=== PATIENT | female | born 1960 | race Caucasian/White ===

== ENCOUNTER 2021-10-11 03:37 | Inpatient (IN) | payer OTHER ==
[2021-10-11 05:27] VITALS: BMI 29.7
[2021-10-11] MEDS ORDERED: Ondansetron PF 4 MG/2 ML Vial IVP PRN (06:16)
[2021-10-11] MEDS ORDERED: Nitroglycerin 0.4 MG TAB (25 Tab Bottle) SL PRN (06:16)
[2021-10-11 07:03] LABS: Cardiac Risk 5.1 (Less than 4.5)
[2021-10-11 07:13] LABS: Troponin I 14.786 ng/mL (< 0.028)
[2021-10-11 07:27] LABS: Hemoglobin A1c 5.7 % (4.0-6.0)
[2021-10-11] MEDS: Carvedilol 6.25 MG TAB PO SCH (08:48)
[2021-10-11] MEDS ORDERED: Communication Order-Pharmacy FS SCH (09:30)
[2021-10-11] MEDS ORDERED: Sodium Chloride 0.9% 1,000 ML IV SCH ×2 (09:30→14:45)
[2021-10-11 10:13] LABS: Troponin I 24.506 ng/mL (< 0.028)
[2021-10-11] MEDS ORDERED: Adenosine 6 MG/2 ML VIAL ONE (12:15)
[2021-10-11] MEDS ORDERED: Verapamil 5 MG/2 ML VIAL ONE (12:15)
[2021-10-11] MEDS ORDERED: Heparin 10,000 UNITS/ 10 ML VIAL ONE ×2 (12:15→13:53)
[2021-10-11] MEDS ORDERED: Nitroglycerin 100MG/250ML BOT 250 ML ONE (12:15)
[2021-10-11] MEDS ORDERED: Lidocaine 1% (PF) 30 ML VIAL ONE (12:16)
[2021-10-11] MEDS ORDERED: Midazolam HCl 2 mg/2 ml Vial ONE (12:54)
[2021-10-11] MEDS ORDERED: Fentanyl 100 MCG/2 ML VIAL ONE (12:54)
[2021-10-11] MEDS ORDERED: TICAGRELOR 90 MG TABLET ONE (13:38)
[2021-10-11] MEDS ORDERED: Iopamidol 370 76% 100 ML VIAL ONE (14:38)
[2021-10-11] MEDS: Acetaminophen 325 MG TAB PO PRN (15:30)
[2021-10-11] MEDS: Atorvastatin Calcium 40 MG TAB PO SCH (20:38)
[2021-10-11] MEDS: TICAGRELOR 90 MG TABLET PO SCH (20:38)
[2021-10-12 04:23] LABS: ALT (SGPT) 22 U/L (8-55); AST (SGOT) 51 U/L (5-34); Albumin 3.5 g/dL (3.4-4.8); Alkaline Phosphatase 42 U/L (40-110); Anion Gap 12 mmol/L (10-20); BUN (Urea Nitrogen) 10 mg/dL (9.8-20.1); Bilirubin, Total 0.6 mg/dL (0.2-1.2); Calc. Creatinine Clearance 147 mL/min (70-130); Calcium 8.5 mg/dL (7.8-10.44); Carbon Dioxide 24 mmol/L (23-31); Chloride 108 mmol/L (98-107); Estimated GFR 103; Globulin 2.1 g/dL (2.4-3.5); Glucose 99 mg/dL (80-115); Potassium 3.7 mmol/L (3.5-5.1); Protein, Total 5.6 g/dL (5.8-8.1); Sodium 140 mmol/L (136-145)
[2021-10-12] MEDS: TICAGRELOR 90 MG TABLET PO SCH ×2 (08:52→18:39)
[2021-10-12] MEDS: Carvedilol 6.25 MG TAB PO SCH (08:52)
[2021-10-12] MEDS ORDERED: Enoxaparin Sodium 40 MG/0.4 ML SYRINGE SC SCH (09:00)
[2021-10-12] MEDS ORDERED: Aspirin Chewable 81 MG TAB PO SCH ×2 (09:00)
[2021-10-12 11:37] VITALS: TEMP 97.6
[2021-10-12] MEDS: Acetaminophen 325 MG TAB PO PRN (12:00)
[2021-10-12 18:04] VITALS: BP 114/58
[2021-10-12] MEDS: Atorvastatin Calcium 40 MG TAB PO SCH (18:40)
== END 2021-10-12 18:49 | disposition home or self-care (01) | DRG 247 ==
LOC: 2NO 03:40
PROVIDERS: ADMIT Internal Medicine; ATTEND Internal Medicine
PROC: 027034Z Dilation of Coronary Artery, One Artery with Drug-eluting Intraluminal Device, Percutaneous Approach (ICD-10-PCS; principal; 2021-10-11)
PROC: 4A023N7 Measurement of Cardiac Sampling and Pressure, Left Heart, Percutaneous Approach (ICD-10-PCS; 2021-10-11)
PROC: B2111ZZ Fluoroscopy of Multiple Coronary Arteries using Low Osmolar Contrast (ICD-10-PCS; 2021-10-11)
PROC: B2151ZZ Fluoroscopy of Left Heart using Low Osmolar Contrast (ICD-10-PCS; 2021-10-11)
PROC: B240ZZ3 Ultrasonography of Single Coronary Artery, Intravascular (ICD-10-PCS; 2021-10-11)
DX: I21.4 Non-ST elevation (NSTEMI) myocardial infarction (principal); I25.110 Atherosclerotic heart disease of native coronary artery with unstable angina pectoris; Z20.822 Contact with and (suspected) exposure to COVID-19; I10 Essential (primary) hypertension; F17.210 Nicotine dependence, cigarettes, uncomplicated; G89.29 Other chronic pain; M54.50 Low back pain, unspecified; Z71.6 Tobacco abuse counseling; Z79.899 Other long term (current) drug therapy; Z90.49 Acquired absence of other specified parts of digestive tract; Z90.710 Acquired absence of both cervix and uterus; Z98.890 Other specified postprocedural states; Z82.49 Family history of ischemic heart disease and other diseases of the circulatory system
CPT/HCPCS: 36415; 80053; 80061; 83036; 85347; 92928; 92978; 93005; 93010; 93458; 93798; 94760; 99152; 99153; C1753; C1769; C1874; C9600; J0153; J1644; J2001; J2250; J3010; J7050; Q9967; U0003; U0005